=== PATIENT | female | born 1945 | race Caucasian/White ===

== ENCOUNTER 2020-05-06 17:02 | Emergency (ER) | payer MEDICARE, OTHER ==
[2020-05-06] MEDS ORDERED: Ondansetron 4 MG Tab.DIS PO ONE (17:24)
--- NOTE | 2020-05-06 18:15 | EDM.PDOC ---
ED HPI GENERAL MEDICAL PROBLEM - General Chief Complaint: Head Injury Stated Complaint: FELL OFF LADDER HEAD AND NECK INJURY Time Seen by Provider: 05/06/20 17:17 Source of Information: Reports: Patient History Limitations: Reports: No Limitations - History of Present Illness INITIAL COMMENTS - FREE TEXT/NARRATIVE: The patient presents after a fall for head and neck pain. She was painting on a ladder and fell. She hit the back of her head and neck. She had no LOC. She has pain to the back of her head and upper cervical spine. She had nausea and vomiting when she got into her car. She has no numbness or weakness. She has no chest pain, shortness of breath, abdominal pain, leg or arm pain. Onset: Sudden Duration: Minutes: Location: Reports: Head, Neck Quality: Reports: Sharp Severity: Moderate Improves with: Reports: Immobilization Worsens with: Reports: Movement Context: Reports: Trauma (Fell off a ladder) Associated Symptoms: Reports: Headaches, Nausea/Vomiting. Denies: Chest Pain, Cough, Fever/Chills, Shortness of Breath - Related Data Allergies Allergy/AdvReac Type Severity Reaction Status Date / Time No Known Allergies Allergy Verified 05/06/20 17:16 Past Medical History HEENT History: Reports: Cataract, Impaired Vision Other HEENT History: wears eyeglasses. Cardiovascular History: Reports: Hypertension Neurological History: Reports: Concussion Dermatologic History: Reports: Other (See Below) Other Dermatologic History: removal of skin lesion to L) side of face. - Infectious Disease History Infectious Disease History: Reports: Measles - Past Surgical History GI Surgical History: Reports: Colonoscopy Social & Family History - Tobacco Use Smoking Status *Q: Never Smoker Second Hand Smoke Exposure: No - Caffeine Use Caffeine Use: Reports: Coffee - Recreational Drug Use Recreational Drug Use: No ED ROS GENERAL - Review of Systems Review Of Systems: See Below Constitutional: Reports: No Symptoms HEENT: Reports: No Symptoms Respiratory: Reports: No Symptoms Cardiovascular: Reports: No Symptoms Endocrine: Reports: No Symptoms GI/Abdominal: Reports: Nausea, Vomiting. Denies: Abdominal Pain : Reports: No Symptoms Musculoskeletal: Reports: Neck Pain Skin: Reports: No Symptoms Neurological: Reports: Headache. Denies: Numbness, Weakness ED EXAM, HEAD INJURY - Physical Exam Exam: See Below Exam Limited By: No Limitations General Appearance: Alert, No Apparent Distress Head: Other (Mild pain upon palpation to the occipital region.) Eyes: Bilateral Eye: EOMI Ears: Normal External Exam Nose: Normal Inspection Neck: Tenderness (To the upper cervical spine) Respiratory: No Respiratory Distress, Lungs Clear, Normal Breath Sounds Cardiovascular: Regular Rate, Rhythm, No Edema, No Murmur GI/Abdominal Exam: Soft, Non-Tender, No Organomegaly, No Mass Back Exam: Normal Inspection Extremities: Normal Inspection Neurologic: No Motor/Sensory Deficits, Alert, Oriented x 3 Course - Vital Signs Last Recorded V/S: Last Vital Signs Temp 97.3 F 05/06/20 17:14 Pulse 73 05/06/20 17:14 Resp 16 05/06/20 17:14 BP 169/90 H 05/06/20 17:14 Pulse Ox 97 05/06/20 17:14 - Orders/Labs/Meds Meds: Medications Discontinued Medications Generic Name Dose Route Start Last Admin Trade Name Freq PRN Reason Stop Dose Admin Ondansetron HCl 4 mg 05/06/20 17:24 05/06/20 17:29 Zofran Odt PO 05/06/20 17:25 4 mg ONETIME ONE Administration - Re-Assessments/Exams Free Text/Narrative Re-Assessment/Exam: 05/06/20 18:15 I ordered zofran 4mg PO, CT of her head and cervical spine. 05/06/20 18:[address] of her cervical spine shows degenerative change. Nothing acute is appreciated on CT study of the cervical spine. The CT of her head shows minimal senescent change. Nothing acute is appreciated on noncontrast head CT exam. Departure - Departure Time of Disposition: 18:45 Disposition: Home, Self-Care 01 Condition: Good Clinical Impression: Concussion injury of brain Head injury Qualifiers: Encounter type: initial encounter Qualified Code(s): S09.90XA - Unspecified injury of head, initial encounter Cervical strain, acute Qualifiers: Encounter type: initial encounter Qualified Code(s): S16.1XXA - Strain of muscle, fascia and tendon at neck level, initial encounter - Discharge Information *PRESCRIPTION DRUG MONITORING PROGRAM REVIEWED*: Not Applicable *COPY OF PRESCRIPTION DRUG MONITORING REPORT IN PATIENT INGRIS: Not Applicable Referrals: Leon Santo MD [Primary Care Provider] - 1 Week Forms: ED Department Discharge Additional Instructions: Drink plenty of fluids. Take tylenol or motrin for pain. Ice your neck for 15 minutes 3 times per day for 2 days. Please return if you are worse. Sepsis Event Note (ED) - Evaluation Sepsis Screening Result: No Definite Risk - Focused Exam Vital Signs: Vital Signs Temp Pulse Resp BP Pulse Ox 05/06/20 17:14 97.3 F 73 16 169/90 H 97
--- NOTE | 2020-05-06 18:25 | CT ---
Head CT Technique: Multiple axial sections through the brain were obtained. Intravenous contrast not utilized. Comparison: No previous intracranial imaging is available. Findings: Ventricles along with basal cisterns and sulci over the convexities appear within normal limits for the patient's age. Minimal areas of diminished density are noted within portions of the periventricular white matter compatible with small vessel ischemic demyelination change. No other abnormal parenchymal densities are seen. No evidence of intracranial hemorrhage. No midline shift or mass-effect is seen. Bone window settings were reviewed. Atherosclerotic calcification is noted within the vertebral vessels and within the carotid siphon. Mastoid sinuses and visualized paranasal sinuses show nothing acute. No acute calvarial abnormality is appreciated. Impression: 1. Minimal senescent change as noted above. 2. Nothing acute is appreciated on noncontrast head CT exam. Diagnostic code #2 This report was dictated in MDT
--- NOTE | 2020-05-06 18:31 | CT ---
CT cervical spine Technique: Multiple axial sections through the cervical spine were obtained. Reconstructed coronal and sagittal images were obtained. Findings: Mild spondylolisthesis is noted at C3-4 due to degenerative apophyseal change. Severe disc space narrowing is noted at C4-5, C5-6 and C6-7 with moderate disc space narrowing at C7-T1. Anterior osteophytes are seen at these levels. Mild posterior osteophytes are noted at C5-6 and C6-7. Small bony densities are noted off the spinous processes of the lower cervical spine which are old. Degenerative change is noted between the dens and anterior arch of C1. Diffuse degenerative apophyseal change is noted. Fairly severe right-sided neural foraminal stenosis noted at C3-4. Other neural foramina are fairly well patent. No bony central canal stenosis is seen. No acute fracture is appreciated. No abnormal subluxation is appreciated. Impression: 1. Degenerative change as noted above. 2. Nothing acute is appreciated on CT study of the cervical spine. Diagnostic code #2 This report was dictated in MDT
== END 2020-05-06 19:00 | disposition home or self-care (01) ==
LOC: JD.ED 17:02
DX: S06.0X0A Concussion without loss of consciousness, initial encounter (principal); S16.1XXA Strain of muscle, fascia and tendon at neck level, initial encounter; I10 Essential (primary) hypertension; W11.XXXA Fall on and from ladder, initial encounter
CPT/HCPCS: 70450; 70450-26; 72125; 72125-26; 99284-25; A9270-GY